=== PATIENT | female | born 1975 | race African-American/Black ===

== ENCOUNTER → 2017-01-25 | Outpatient (CLI) | payer OTHER ==
[~2017-01-25] MED LIST: ACETAMINOPHEN650 M1 PO; ALBUTEROL17 GM INH; BENTYL20 MG PO; CELEXA10 MG PO; CELEXA20 MG PO; FLONASE 0.05% N16 GM; HYDROCHLOROTHIA25 MG PO; HYDROXYZINE HCL10 MG PO; LEVSIN0.125 M2 PO; LIPITOR20 MG PO; MONTELUKAST SOD10 MG PO; OMEPRAZOLE40 M1 PO; PREDNISONE50 MG PO; SYMBICORT INH; ZITHROMAX PO
--- NOTE | ~2017-01-25 | US6 ---
[facility] A Service of [facility] RADIOLOGY TEXT RESULTS PATIENT: ZAKIYA MENDOZA LOCATION: [facility] : [birth year] UNIT #: [id number] AGE: [address]: TONO PABLO SEX: F ORDER DR: [id number] [facility] [address] [place], [place] [address] [id number] O MR#: [id number] Acc #: [id number] NAME: ZAKIYA MENDOZA : 1975 SEX: F STUDY DATE/TIME: 01/25/2017 11:15 UNIT: [facility] ROOM: STUDY DESCRIPTION: US Abdominal Limited Attending Physician: Daria Harris Ordering Physician: Jennifer Hi M.D. Primary Care Physician: Jennifer Hi M.D. MEDICAL IMAGING REPORT This report is preliminary unless electronic signature is present EXAM Right upper quadrant abdominal ultrasound. Date: 01/25/2017. HISTORY Diffuse abdominal pain for 2 weeks. Family history of kidney cancer and rectal cancer. COMPARISON Right upper quadrant abdominal ultrasound 04/28/2013. FINDINGS Pancreatic duct caliber is within normal limits, 2 mm. Pancreas has normal sonographic appearance. Portions of the pancreas tail are obscured by bowel gas. Liver demonstrates normal echotexture without focal abnormality. Liver size is within normal limits, 17.8 cm in long axis. Main portal vein demonstrates normal color flow. Intrahepatic IVC has unremarkable mckay-scale appearance. No focal liver lesions are identified. No ascites is seen. Gallbladder is free of shadowing stone, sludge, wall thickening or pericholecystic fluid. Right kidney measures 11 cm in length and contains a 1.7 cm simple cyst in its lower pole. No right side hydronephrosis. Common bile duct caliber is upper limits normal, 6 mm. No intrahepatic biliary ductal dilation is seen. IMPRESSION 1. The common bile duct caliber is just at upper limits normal, 6 mm, but no intraductal abnormality is identified. There is no intrahepatic biliary dilation. 2. The remainder of examination is within normal limits. 3. 1.7 cm right renal cyst. [facility] A Service of [facility] RADIOLOGY TEXT RESULTS PATIENT: ZAKIYA MENDOZA LOCATION: [facility] : 73 UNIT #: [id number] AGE: [address]: TONO PABLO SEX: F ORDER DR: Dictated by... Gladys Gutierrez M.D. THIS IS AN ELECTRONICALLY VERIFIED REPORT Gladys Gutierrez M.D. at 01/26/2017 2:08 PM JOSE MIGUEL/li TD: 01/26/2017 08:29 JOB #: [id number] MEDICAL IMAGING REPORT COPY
== END | disposition home or self-care (01) ==
LOC: CWCC 10:56
DX: R10.9 Unspecified abdominal pain (principal); N28.1 Cyst of kidney, acquired
CPT/HCPCS: 76705

== ENCOUNTER 2017-05-20 11:28 | Inpatient (IN) | payer OTHER ==
--- NOTE | ~2017-05-20 | BMI ---
[facility] Nutrition Therapy DATE: 05/21/17 Patient: ZAKIYA MENDOZA Physician: LISA Address: [address] [place] [address] Room/Bed: [address] [place] [address], Zip: [place] [address] Admit Date: 05/20/17 Date of : [birth year] Height: 5 7 Weight: 274 124.5 HIGH BMI NOTE: DX: 41 Y.O. FEMALE ADMITTED FOR ASTHMA EXACERBATION ANTHROPOMETRICS: 5'7", WT: 285# (PER PT) (130 KG), BMI: 44.6 DIET: HEALTHY HEART DIET RECOMMENDATIONS: 1. RECOMMEND TO CONTINUE CURRENT DIET ORDER ABOVE TO PROMOTE GRADUAL WEIGHT LOSS TOWARDS HEALTHY BMI (19.0-25.0) OR +/-10%IBW RD WILL F/U PER PROTOCOL Respectfully, JAQUELINE BURNS MS, RD, LD Food and Nutritional Services [facility] cc: client file
--- NOTE | ~2017-05-20 | US84 ---
[id number] [facility] [address] [place], [place] [address] [id number] I MR#: [id number] Acc #: [id number] NAME: ZAKIYA MENDOZA : 1975 SEX: F STUDY DATE/TIME: 05/20/2017 16:55 UNIT: C2A ROOM: 219 STUDY DESCRIPTION: US LE Veins Complete Jose Stdy Attending Physician: Jennifer Hi M.D. Ordering Physician: Jennifer Hi M.D. Primary Care Physician: Jennifer Hi M.D. MEDICAL IMAGING REPORT This report is preliminary unless electronic signature is present EXAM Bilateral lower extremity duplex venous ultrasound HISTORY Bilateral lower extremity pain and swelling for 4 days. TECHNIQUE Mei-scale, color Doppler and spectral Doppler waveform imaging of the deep venous structures of both lower extremities was performed using compression and augmentation. Comparison is made with 05/01/2016. FINDINGS All the evaluated deep venous structures are patent and compressible. There is no evidence for DVT. IMPRESSION No evidence for DVT. Dictated by... Kristian Fitzpatrick M.D. THIS IS AN ELECTRONICALLY VERIFIED REPORT Kristian Fitzpatrick M.D. at 05/21/2017 10:01 AM KATIE/toshia TD: 05/21/2017 02:17 JOB #: [id number] MEDICAL IMAGING REPORT Page 1 of 1 COPY
--- NOTE | ~2017-05-20 | CO ---
Unit #: [id number] #: [id number] Patient: ZAKIYA MENDOZA [id number] [address] [address] [id number] I MR#: [id number] NAME: ZAKIYA MENDOZA. ROOM: 219 Age: 41 Sex: F Admission Date: 05/20/2017 : 1975 Attending Physician: Jennifer Hi M.D. Primary Care Physician: Jennifer Hi M.D. Consultation Date: 05/21/2017 CONSULTATION REPORT REASON FOR CONSULT Shortness of breath. HISTORY OF PRESENT ILLNESS This is a very pleasant 41-year-old -Vincentian female with past medical history significant of pulmonary embolism in 2014, asthma, and allergy who presented to the emergency room at [facility] with two days history of progressive shortness of breath associated with headache and lower extremity pain. Patient stated that her symptoms started first as lower extremity discomfort and then she later started having headache and dyspnea. She denied any cough, fever, wheezing, nausea, vomiting, or diarrhea. Her symptoms continued to progress over the last one to two days and she eventually could not breathe anymore and had to present to [facility] Emergency Room. The patient has a history of asthma but she does not think this is an asthma attack. Of note, the patient had a history of pulmonary embolus, was treated with Xarelto for six months in 2014 and she attributed at that time to control. Patient is status post hysterectomy now. Patient has a strong family history of malignancy colon and renal in the family. Patient had a colonoscopy two weeks ago that showed only diverticulosis. 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 She never smoked and she drinks only socially. PAST MEDICAL HISTORY 1. Asthma. 2. Depression. 3. IBS. 4. Diverticulitis. 5. History of pulmonary embolus. PAST SURGICAL HISTORY 1. Hysterectomy. 2. Tonsillectomy. 3. Adenoidectomy. 4. Tubal ligation. SOCIAL HISTORY Patient drinks only socially but no history of alcohol or drug abuse. FAMILY HISTORY Remarkable for coronary artery disease and colon cancer and renal cancer. HOME MEDICATIONS 1. Citalopram. 2. Bentyl. Unit #: [id number] #: [id number] Patient: KELLY,ZAKIYA J 3. Lipitor. 4. Hydrochlorothiazide. 5. Singulair. 6. Symbicort. 7. Ventolin. 8. Flonase. 9. Omeprazole. 10. Hyoscyamine. REVIEW OF SYSTEMS A 12-point review of systems was obtained and was negative except for what was mentioned in HPI. PHYSICAL EXAMINATION GENERAL: The patient is very pleasant in no acute distress but she is dyspneic. VITAL SIGNS: Blood pressure 131/69, respiratory rate 20, O2 saturation 98% on room air. HEENT: Atraumatic, normocephalic. PERRLA. EOMI. NECK: Supple. No JVD. No lymphadenopathy. CHEST: Clear to auscultation bilaterally. HEART: S1, S2. No murmur, gallops, or rubs. ABDOMEN: Soft, nontender. Bowel sounds positive. No hepatosplenomegaly. EXTREMITIES: No edema or cyanosis. SKIN: No rashes. CENTRAL NERVOUS SYSTEM: Awake, alert, oriented x3. No focal motor/sensory deficits. DIAGNOSTIC STUDIES LABORATORY: Creatinine 0.8, CO2 of 24. White blood count 11.7, hemoglobin 12.3. The differential for the CBC is 50% lymphocytic. IMAGING: CT angiogram is negative for PE or pneumonia. ASSESSMENT 1. Dyspnea. 2. Abdominal lymphadenopathy. 3. History of pulmonary embolus. 4. Asthma. 5. Depression. 6. Diverticular disease. PLAN 1. I doubt this is an asthma attack and I will hold her IV steroids at this point pending other testing. 2. Cardiac etiology definitely needs to be ruled out; however, her symptoms and physical exam suggest more in anxiety-related dyspnea. 3. Patient needs a CT abdomen and pelvis with blood flow cytometry to rule out lymphoproliferative disorder. 4. I will put patient on gentle IV hydration given contrast exposure. 5. Bronchodilator as needed. I had a lengthy discussion with the patient and her daughter and sister at bedside. All questions were answered to my best knowledge. Further recommendation to follow pending test and imaging. Unit #: [id number] #: [id number] Patient: ZAKIYA MENDOZA Dictated by... Ray Ivan TD: 05/21/2017 09:24 JOB #: [id number] CONSULTATION REPORT Page 1 of 1 X EARL POST MD CONSULTATION REPORT
--- NOTE | ~2017-05-20 | HP ---
Unit #: [id number] #: [id number] Patient: FANI MENDOZA [id number] [address] [address] [id number] I MR#: [id number] NAME: FANI MENDOZA. ROOM: 219 Age: 41 Sex: F Admission Date: 05/20/2017 : 1975 Attending Physician: Jennifer Hi M.D. Primary Care Physician: Jennifer Hi M.D. HISTORY AND PHYSICAL ADMISSION DIAGNOSES 1. Acute exacerbation of asthma. 2. Elevated D-dimer. 3. History of PE in the past. 4. Depression. HISTORY OF PRESENT ILLNESS Ms. Fani Mendoza is a 41-year-old -Qatari female, patient of Dr. Hi, who apparently started having shortness of air, dyspnea two to three days ago. It got worse. The patient was seen in the [facility] the [facility] ER yesterday and was found with elevated D-dimer and underwent the CT angio of the chest. Reportedly, it was negative. The patient was discharged from the ER and was told to follow up with the primary care physician since that on the CT report it was found some lymphadenopathy around the liver. She was seen at Dr. Hi's office, was still complaining of shortness of air and dyspnea and was directly admitted with the acute exacerbation of asthma. Accordingly, she denies any other symptoms. She denies any chest pain, headache, dizziness, syncope or presyncope, nausea, vomiting, diarrhea, fever, chills or productive cough. So, a 12-point review of systems on this patient basically negative except as above. PAST MEDICAL HISTORY Asthma, depression and some IBS. PAST SURGICAL HISTORY Tubal ligation, hysterectomy, tonsillectomy, adenoidectomy. SOCIAL HISTORY No history of tobacco, alcohol or illicit drugs. FAMILY HISTORY Unremarkable. ALLERGIES No known drug allergies. HOME MEDICATION LIST 1. Citalopram 10 mg daily. 2. Bentyl 20 mg p.o. q.6 hours. 3. Lipitor 20 mg at bedtime. 4. Hydrochlorothiazide 25 mg daily. 5. Singulair 10 mg daily. 6. Symbicort. Unit #: [id number] #: [id number] Patient: FANI MENDOZA 7. Ventolin. 8. Zithromax. 9. Prednisone. 10. Flonase. 11. Omeprazole. 12. Hyoscyamine. PHYSICAL EXAMINATION GENERAL APPEARANCE: She is a 41-year-old, obese -Qatari female in no acute distress. VITAL SIGNS: Blood pressure 128/71. Heart rate 71. Respirations 20. Temperature 98.1. HEENT: Head is atraumatic. Pupils equal, round and reactive to light and accommodation. Extraocular muscles intact. Oropharynx clear. NECK: Supple. No mass. No JVD. No bruits. CHEST: Diminished bilaterally but not too much of wheezing. CARDIOVASCULAR: S1, S2. No murmurs. ABDOMEN: Obese, soft, nontender, nondistended. Bowel sounds are diminished. EXTREMITIES: Lower extremities without any pitting edema. NEUROLOGIC: Patient grossly intact. No focal deficits. DIAGNOSTIC STUDIES LABORATORY: White count 11.7, hemoglobin and hematocrit 12.3 and 38.8. BUN and creatinine 18 and 0.8. Blood glucose 116. D-dimer 960. ASSESSMENT AND PLAN 1. Asthma exacerbation. Continue DuoNeb. We will add Pulmicort. Pulmonary to see. Also, continue Solu-Medrol which was (1) by Dr. Hi. 2. Elevated D-dimer status post negative CT angio from [facility] the [facility] ER from yesterday with some lymphadenopathy. I will obtain the report. 3. History of PE in the past. 4. Depression. Continue home meds. 5. Hypertension. Continue home meds. 6. GI and DVT prophylaxis. Continue PPI and Lovenox 40 subcu daily. Dictated by Avila French M.D. OC/bd TD: 05/21/2017 06:51 JOB #: [id number] HISTORY AND PHYSICAL Page 1 of 1 X Avila French MD HISTORY AND PHYSICAL
--- NOTE | ~2017-05-20 | CT2 ---
[facility] A Service of [facility] RADIOLOGY TEXT RESULTS PATIENT: ZAKIYA MENDOZA LOCATION: [facility] : [birth year] UNIT #: [id number] AGE: [address]: Jennifer Hi MD SEX: F ORDER DR: [id number] [facility] [address] [place], [place] [address] [id number] I MR#: [id number] Acc #: [id number] NAME: ZAKIYA MENDOZA : 1975 SEX: F STUDY DATE/TIME: 05/22/2017 12:26 UNIT: C4B ROOM: [facility] STUDY DESCRIPTION: CT Abd and Pelv W Cont Attending Physician: Jennifer Hi M.D. Ordering Physician: Avila French M.D. Primary Care Physician: Jennifer Hi M.D. MEDICAL IMAGING REPORT This report is preliminary unless electronic signature is present EXAM Abdomen and pelvis CT with contrast, 05/22/2017. INDICATION Enlarged lymph nodes on CT of the chest. Left-sided pain since March. History of diverticulitis. Clinical concern for a lymphoma. TECHNIQUE Contrast-enhanced abdomen and pelvis CT was performed. This CT exam was performed with one or more of the following radiation dose reduction techniques: automatic exposure control, adjustment of mA and/or kV according to patient size, and iterative reconstruction. COMPARISON We have no comparisons. FINDINGS Included lung bases are clear. Aorta demonstrates no aneurysm or dissection. There are granulomatous changes of the spleen and the spleen measures about 10.7 cm long axis. Adrenal glands are unremarkable and the pancreas is unremarkable. Probable underlying pancreas divisum as an anatomic variant. Gallbladder unremarkable. Liver unremarkable. Kidneys within normal limits. Previously documented periportal adenopathy is noted including a foramen of Isaac lymph node measuring about 19 mm. No distinct retroperitoneal adenopathy identified. No mesenteric adenopathy. CT PELVIS: Bladder unremarkable. Uterus surgically absent. There are follicles in the left ovary. Trace amount of fluid in the left hemipelvis [facility] A Service [facility] RADIOLOGY TEXT RESULTS PATIENT: ZAKIYA MENDOZA LOCATION: C4B 460-01 : [birth year] UNIT #: [id number] AGE: [address]: Jennifer Hi MD SEX: F ORDER DR: may reflect recent follicle or cyst rupture. No distinct drainable fluid collection. No evidence of bowel obstruction or focal inflammatory change of the bowel. There is intermittent diverticulosis. Appendix normal. Inguinal canals unremarkable. Incidental probable tiny appendicolith. There is no pelvic adenopathy. Osseous structures demonstrate degenerative change at L5-S1 but no suspicious bone lesion. Probable benign bone island in the superior endplate of L3. IMPRESSION 1. No clearly acute process identified. Previously documented adenopathy in the upper abdomen again noted but there is no evidence of additional retroperitoneal, mesenteric, or pelvic adenopathy. 2. Small amount of free fluid in the pelvis, probably related to recent cyst or follicle rupture from the left ovary. This appears physiologic. 3. Diverticulosis. 4. The appendix demonstrates no evidence of appendicitis but there is probably a tiny appendicolith associated with the appendiceal lumen. Dictated by... Jun Lozano M.D. THIS IS AN ELECTRONICALLY VERIFIED REPORT uJn Lozano M.D. at 05/23/2017 8:48 AM DENVER/tam TD: 05/23/2017 00:27 JOB #: [id number] MEDICAL IMAGING REPORT Page 1 of 1 COPY
--- NOTE | ~2017-05-20 | DS ---
Unit #: [id number] #: [id number] Patient: ZAKIYA MENDOZA [id number] [address] [address] [id number] I MR#: [id number] NAME: ZAKIYA MENDOZA. ROOM: 460 Age: 41 Sex: F Admission Date: 05/20/2017 : 1975 Discharge Date: 05/23/2017 Attending Physician: Jennifer Hi M.D. Primary Care Physician: Jennifer Hi M.D. DISCHARGE SUMMARY CONSULTATIONS DURING HOSPITALIZATION Dr. Swati Naidu and Dr. Kenney from pulmonary services. ADMITTING PHYSICIAN Dr. Avila French. DISCHARGING PHYSICIAN Dr. Jennifer Hi. DIAGNOSTIC STUDIES LABORATORY: Lab workup done during hospitalization: CBC shows WBC 8, hemoglobin 11.5, hematocrit 35.8, and platelet count of 161,000. BMP shows sodium 129, potassium 4, chloride 100, BUN 20, creatinine 0.7, calcium 8.3. Hemoglobin A1c is 5.2. Troponin less than 0.03. D-dimer elevated to 960. IMAGING: Radiological studies done during hospitalization were: Venous Doppler study of bilateral lower extremities which is negative for any DVT. CT scan of the abdomen and pelvis was done which shows no clearly acute process identified. Previously documented adenopathy in the upper abdomen again noted. No evidence of additional retroperitoneal, mesenteric, or pelvic adenopathy. Diverticulosis is seen. CTA of the chest which was done in [facility] was negative for PE. HOSPITAL COURSE A 41-year-old -Anguill[place] female who was admitted by Dr. French on May 20, 2017. Patient was actually seen in our office and was admitted for dyspnea. Patient was admitted for acute exacerbation of asthma and elevated D-dimer. Pulmonary embolism had been ruled out in [facility]. Bilateral venous Doppler study was done which was negative for any DVT. Patient did have periportal lymphadenopathy on the CT scan of the chest which was done at [facility]. CT scan of the abdomen and pelvis was done to rule out any retroperitoneal adenopathy. The patient does not have any retroperitoneal adenopathy. Significance of periportal adenopathy is not known and this was told to patient and patient's family. We will refer patient to hematology for further evaluation of this lymphadenopathy. 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 Patient's steroids Unit #: [id number] #: [id number] Patient: ZAKIYA MENDOZA were discontinued. There is a possibility this is most likely secondary to anxiety. This was explained to patient also. Patient's Celexa is being increased to 20 mg and hydroxyzine is being added to see whether that would help any symptoms. She does feel somewhat better today than yesterday. Discussed with patient's family at length. All the questions were answered. Will have Dr. Kenney see her before discharge. PHYSICAL EXAMINATION VITAL SIGNS: On discharge, blood pressure 138/77, respiratory rate 16, pulse 60, temperature 98.4, oxygen saturation is 100%. HEENT: Head is normocephalic. CHEST: Fair air entry. CARDIOVASCULAR: Regular rhythm. ABDOMEN: Soft. EXTREMITIES: Negative edema. DISPOSITION The patient is being discharged home in stable condition. DISCHARGE MEDICATIONS Medications as per med rec which are as followin. Omeprazole 40 mg daily. 2. Singulair 10 mg daily. 3. Lipitor 20 mg at bedtime. 4. Hydrochlorothiazide 25 mg daily. 5. Hydroxyzine 10 mg twice a day. 6. Bentyl 20 mg q.6 p.r.n. 7. Celexa 20 mg daily. 8. Flonase daily. 9. Symbicort 160/4.5 two puffs inhaler b.i.d. 10. Albuterol inhaler as needed. FOLLOWUP 1. Followup primary care provider in one week. 2. Followup hematology as outpatient. Dictated by... Ray Soto TD: 05/25/2017 17:10 JOB #: [id number] Unit #: [id number] #: [id number] Patient: ZAKIYA MENDOZA DISCHARGE SUMMARY Page 1 of 1 X Jennifer Hi MD X DISCHARGE SUMMARY
--- NOTE | ~2017-05-20 | EKG ---
PATIENT: ZAKIYA MENDOZA UNIT #: [id number] Ventricular Rate: 69 BPM Atrial Rate: 69 BPM P-R Interval: 154 ms QRS Duration: 74 ms Q-T Interval: 384 ms QTC Calculation(Bezet): 411 ms P Roslyn: 67 degrees Calculated R Ros[place]: 73 degrees Calculated T Ros[place]: 63 degrees Diagnosis Line: Normal sinus rhythm with sinus arrhythmia Diagnosis Line: Normal ECG Diagnosis Line: No previous ECGs available Diagnosis Line: Confirmed by TYLER DELONG MD ([id number]) on 05/20/2017 Diagnosis Line: 8:43:23 PM INTERPRETING MD: SINDI SIM
[2017-05-20] MEDS ORDERED: CELEXA10 MG PO (18:09)
[2017-05-20] MEDS ORDERED: BENTYL20 MG PO (18:12)
[2017-05-20] MEDS ORDERED: LIPITOR20 MG PO (18:12)
[2017-05-20] MEDS ORDERED: SYMBICORT INH (18:13)
[2017-05-20] MEDS ORDERED: MONTELUKAST SOD10 MG PO (18:13)
[2017-05-20] MEDS ORDERED: HYDROCHLOROTHIA25 MG PO (18:13)
[2017-05-20] MEDS ORDERED: ALBUTEROL17 GM INH (18:14)
[2017-05-20] MEDS ORDERED: ZITHROMAX PO (18:15)
[2017-05-20] MEDS ORDERED: PREDNISONE50 MG PO (18:16)
[2017-05-20] MEDS ORDERED: FLONASE 0.05% N16 GM (18:17)
[2017-05-20] MEDS ORDERED: LEVSIN0.125 M2 PO (18:18)
[2017-05-20] MEDS ORDERED: OMEPRAZOLE40 M1 PO (18:18)
[2017-05-20 18:58] LABS: HEMATOCRIT 38.8 % (35.0-45.0); HEMOGLOBIN 12.3 gm/dL (12.0-16.0); MEAN CELL VOLUME 77.2 FL (83-96); MEAN CORPUSCULAR HEMOGLOBIN 24.4 PG (28-34); MEAN CORPUSCULAR HGB CONC 31.6 g/dL (30-36); MEAN PLATELET VOLUME 8.4 FL (6.5-11.5); RED BLOOD COUNT 5.03 X10e (3.90-5.30); RED CELL DISTRIBUTION WIDTH 14.5 % (11.0-15.5); WHITE BLOOD COUNT 11.7 X10e3 (4.0-10.5)
[2017-05-20 19:29] LABS: ALBUMIN SERUM 3.7 g/dL (3.5-5.0); BILIRUBIN,TOTAL 0.6 mg/dL (0.2-2.0); BUN/CREATININE RATIO 22.5; CREATININE SERUM 0.8 mg/dL (0.6-1.4); GLOM FILT RATE Estimated 105.5 mL/min (>60); POTASSIUM 4.1 mmol/L (3.5-5.1); PROTEIN TOTAL SERUM 7.1 g/dL (6.0-8.3)
[2017-05-20 19:56] LABS: %MB 2.1 % (0.0-4.0); MB 1.4 ng/ml
[2017-05-21 14:26] LABS: HEMATOCRIT 38.3 % (35.0-45.0); HEMOGLOBIN 12.3 gm/dL (12.0-16.0); LYMPHOCYTE# 0.7 X10e3 (1.0-3.5); LYMPHOCYTE% 6.8 % (17.0-45.0); MEAN CELL VOLUME 76.7 FL (83-96); MEAN CORPUSCULAR HEMOGLOBIN 24.6 PG (28-34); MEAN PLATELET VOLUME 8.5 FL (6.5-11.5); MONOCYTE# 0.4 X10e3 (0-1.0); MONOCYTE% 4.3 % (3.0-12.0); NEUTROPHIL% 88.9 % (40-75); PLATELET COUNT 166 X10e3 (140-420); RED CELL DISTRIBUTION WIDTH 14.4 % (11.0-15.5); WHITE BLOOD COUNT 10.1 X10e3 (4.0-10.5)
[2017-05-21 14:27] LABS: DIFF IND NO
[2017-05-21 15:11] LABS: BUN/CREATININE RATIO 25.71; CALCIUM SERUM 9.1 mg/dL (8.4-10.2); CREATININE SERUM 0.7 mg/dL (0.6-1.4); GLOM FILT RATE Estimated 123.9 mL/min (>60); POTASSIUM 4.3 mmol/L (3.5-5.1)
[2017-05-22 04:04] LABS: HEMATOCRIT 35.8 % (35.0-45.0); HEMOGLOBIN 11.5 gm/dL (12.0-16.0); MEAN CORPUSCULAR HEMOGLOBIN 24.5 PG (28-34); MEAN CORPUSCULAR HGB CONC 32.2 g/dL (30-36); MEAN PLATELET VOLUME 8.6 FL (6.5-11.5); RED BLOOD COUNT 4.71 X10e (3.90-5.30); RED CELL DISTRIBUTION WIDTH 14.6 % (11.0-15.5)
[2017-05-22 04:26] LABS: BUN/CREATININE RATIO 28.57; CALCIUM SERUM 8.3 mg/dL (8.4-10.2); CREATININE SERUM 0.7 mg/dL (0.6-1.4); GLOM FILT RATE Estimated 123.9 mL/min (>60)
[2017-05-23] MEDS ORDERED: CELEXA20 MG PO (14:35)
[2017-05-23] MEDS ORDERED: ACETAMINOPHEN650 M1 PO (14:36)
[2017-05-23] MEDS ORDERED: HYDROXYZINE HCL10 MG PO (14:38)
== END 2017-05-23 16:54 | disposition home or self-care (01) | DRG 880 ==
LOC: C2A 15:36 → C4B 05-21 13:19
PROVIDERS: Hospitalist; Physician Assistant Medical
DX: F41.9 Anxiety disorder, unspecified (principal); Z68.41 Body mass index [BMI] 40.0-44.9, adult; I10 Essential (primary) hypertension; R06.00 Dyspnea, unspecified; E66.01 Morbid (severe) obesity due to excess calories; R59.0 Localized enlarged lymph nodes; F32.9 Major depressive disorder, single episode, unspecified; R79.89 Other specified abnormal findings of blood chemistry; Z86.711 Personal history of pulmonary embolism; Z90.710 Acquired absence of both cervix and uterus; Z98.51 Tubal ligation status; Z82.49 Family history of ischemic heart disease and other diseases of the circulatory system; Z80.51 Family history of malignant neoplasm of kidney; Z80.0 Family history of malignant neoplasm of digestive organs
CPT/HCPCS: 74177; 80048; 80053; 82550; 82553; 83036; 84484; 85025; 85027; 85379; 93005; 93970; 94640; 94760; J1200; J1650; J1885; J2920; Q9967